=== PATIENT | female | born 1995 | race Caucasian/White ===

== ENCOUNTER 2017-04-09 16:09 | Emergency (ER) | payer SELFPAY ==
[2017-04-09 16:43] VITALS: BP 138/93
== END 2017-04-09 18:05 | disposition left against medical advice (07) ==
LOC: ED 16:09
DX: R11.2 Nausea with vomiting, unspecified (principal); Z53.21 Procedure and treatment not carried out due to patient leaving prior to being seen by health care provider

== ENCOUNTER 2021-11-21 23:12 | Emergency (ER) | payer SELFPAY ==
[2021-11-21 23:23] VITALS: BP 139/81
== END 2021-11-22 01:28 | disposition left against medical advice (07) ==
LOC: ED 23:12
DX: Z00.8 Encounter for other general examination (principal); Z53.21 Procedure and treatment not carried out due to patient leaving prior to being seen by health care provider

== ENCOUNTER 2022-02-24 06:19 | Emergency (ER) | payer SELFPAY ==
[2022-02-24] MEDS ORDERED: ZIPRASIDONE MESYLATE 20 MG VIAL IM PRN (06:52)
--- NOTE | 2022-02-24 07:06 | Emergency Department Report ---
ED Psych HPI - General Chief Complaint: Psych Stated Complaint: MH EVAL Time Seen by Provider: 02/24/22 06:34 Source: patient Mode of arrival: Stretcher Limitations: Other - History of Present Illness Initial Comments: 26-year-old female with a past medical history of bipolar disorder presents to the hospital after her family called due to aggressive and impulsive behaviors since yesterday. Upon arrival here patient is hyperverbal and had to be deesc alated by staff. At time of my evaluation she is calm and cooperative. She states she feels fine and she does not know why she is here. She admits to mental health issues and DENIES suicidal homicidal ideation. - Related Data Home Medications Medication Instructions Recorded Confirmed Last Taken Ibuprofen [Motrin] 800 mg PO Q8HR PRN 04/09/17 04/09/17 04/09/17 09:00 Previous Rx's Medication Instructions Recorded Last Taken Type OLANzapine [ZyPREXA] 10 mg PO QHS 30 Days #30 tablet 02/25/22 Unknown Rx Allergies Allergy/AdvReac Type Severity Reaction Status Date / Time No Known Allergies Allergy Unverified 04/09/17 16:38 ED Review of Systems ROS: Stated complaint: MH EVAL Other details as noted in HPI Comment: All other systems reviewed and negative ED Past Medical Hx - Past Medical History Previous Medical History?: Yes Hx Hypertension: Yes Hx Headaches / Migraines: Yes (MIGRAINES) Hx Psychiatric Treatment: Yes (BIPOLAR) - Surgical History Past Surgical History?: No - Social History Smoking Status: Never Smoker Substance Use Type: None - Medications Home Medications: Home Medications Medication Instructions Recorded Confirmed Last Taken Type Ibuprofen [Motrin] 800 mg PO Q8HR PRN 04/09/17 04/09/17 04/09/17 09:00 History OLANzapine [ZyPREXA] 10 mg PO QHS 30 Days #30 tablet 02/25/22 Unknown Rx ED Physical Exam - General Limitations: No Limitations - Other Other exam information: General: No acute distress Head: Atraumatic Eyes: normal appearance ENT: Moist mucous membranes Neck: Normal appearance, no midline tenderness Chest: Clear to auscultation bilaterally CV: Tachycardic regular rhythm Abdomen: Soft, normal bowel sounds, nontender, nondistended, no rebound or guarding Back: Normal inspection Extremity: Normal inspection, full range of motion Neuro: Alert O x 3, no facial asymmetry, speech clear, no gross motor sensory deficit Psych: Hyperverbal Skin: No rash ED Course Vital Signs 02/24/22 02/24/22 02/24/22 06:24 06:40 06:52 Temperature 98.6 F 98 F Pulse Rate 111 H 108 H Respiratory 18 18 Rate Blood Pressure 138/92 Blood Pressure 136/80 [Right] O2 Sat by Pulse 99 100 100 Oximetry 02/24/22 02/24/22 02/25/22 13:42 20:16 10:17 Temperature 99.4 F Pulse Rate 87 Respiratory 18 Rate Blood Pressure Blood Pressure 152/79 [Right] O2 Sat by Pulse 99 98 97 Oximetry ED Medical Decision Making - Lab Data Result diagrams: 02/24/22 13:01 02/24/22 13:01 Critical care attestation.: If time is entered above; I have spent that time in minutes in the direct care of this critically ill patient, excluding procedure time. ED Disposition Clinical Impression: Schizophrenia Disposition: HOME / SELF CARE / HOMELESS Is pt being admited?: No Condition: Stable Instructions: Schizophrenia Additional Instructions: Professional and Agency Contacts To help Resolve Crises(16/06) [place] Crisis Line: Suicide Prevention Line: Crisis Text Line: Text START to 788629 Emergency: 911 Outpatient COMMUNITY Behavioral Health Resources: [place]: [facility] [address] [place], [place] [address] [facility] [address] [place] [address] [facility] - [address] [place] [address] Friday thru Friday - 8am - 5pm [place]: [facility] Address: [address], [place] [address] [facility] Address: [address] [place] [address] Friday thru Friday- 7am-2pm [facility] Address: [address] [place], [address] Friday thru Friday: 8:30AM-5PM OUTPATIENT MENTAL HEALTH RESOURCES [facility], [address], [place] [address] [facility] Mazin Zavaleta MD: [address] [facility] [address] [place] [address] [facility]: [address] [place] [address] [place] [address] [phone] [facility]: [address] [place], [place] [id number] [phone] [facility]: [address] [facility] [address] [facility] [id number] [facility]: [address] [place] [address] Osvaldo Salmeron MD: [address] [facility] [id number] [facility]: [address] [facility] [place], [place] [id number] [phone] [place] CRISIS AND ACCESS LINE: * Prescriptions: OLANzapine [ZyPREXA] 10 mg PO QHS 30 Days #30 tablet Referrals: ZARINA SABA MD [Primary Care Provider] - 3-5 Days
[2022-02-24] MEDS ORDERED: ZIPRASIDONE MESYLATE 20 MG VIAL IM ONE (09:21)
--- NOTE | 2022-02-24 10:34 | Consultation ---
History of Present Illness - Reason for Consult Consult date: 02/24/22 Reason for consult: Mental health evaluation - History of Present Psychiatric Illness ED Note:26-year-old female with a past medical history of bipolar disorder presents to the hospital after her family called due to aggressive and impulsive behaviors since yesterday. Upon arrival here patient is hyperverbal and had to be deescalated by staff. At time of my evaluation she is calm and cooperative. She states she feels fine and she does not know why she is here. She admits to mental health issues and suicidal homicidal ideation. The patient is a 26 year old female with history of bipolar. In my encounter with the patient, she presents with hyperverbal and pressured speech. The patient is loud with disorganized thinking and flight of ideas asking for security to get her out of here. Unable to assess SI/HI/Avhs. PAST PSYCHIATRIC HISTORY PAST MEDICAL HISTORY: None reported Family Psychiatric History: None reported or documented SOCIAL HISTORY REVIEW OF SYSTEMS MENTAL STATUS EXAMINATION Assessment and Plan (1) Schizophrenia TREATMENT 1013 Start Zyprexa 5mg po BID Continue previously prescribed medications Risks, benefits and alternatives of medications discussed with the patient, questions answered and consent obtained from patient. PSYCHOTHERAPY: Supportive psychotherapy provided MEDICAL: Per primary team DELIRIUM PRECAUTIONS: Please re-orient patient frequently, keep lights on during the day, and minimize benzodiazepines and opiates as these medications could worsen patient's confusion. 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 FOLLOW-UP: Will follow. Thank you for the consult. Please contact with any questions and/or concerns. Medications and Allergies Medications and Allergies Allergies Allergy/AdvReac Type Severity Reaction Status Date / Time No Known Allergies Allergy Unverified 04/09/17 16:38 Home Medications Medication Instructions Recorded Confirmed Last Taken Type Ibuprofen [Motrin] 800 mg PO Q8HR PRN 04/09/17 04/09/17 04/09/17 09:00 History Active Meds: Active Medications Ziprasidone (Ziprasidone Mesylate 20 Mg Vial) 10 mg IM Q2H PRN PRN Reason: Agitation Mental Status Exam - Vital signs Last Vital Signs Temp 98 F 02/24/22 06:40 Pulse 108 H 02/24/22 06:40 Resp 18 02/24/22 06:40 BP 138/92 02/24/22 06:40 Pulse Ox 100 02/24/22 06:40 Results All other labs normal.
[2022-02-24 13:26] LABS: Basophils % (Auto) 0.5 % (0.0-1.8); Eosinophils # (Auto) 0.1 K/mm3 (0.0-0.4); Eosinophils % (Auto) 1.1 % (0.0-4.3); Hematocrit 41.9 % (30.3-42.9); Hemoglobin 13.5 gm/dl (10.1-14.3); Lymphocytes # (Auto) 2.3 K/mm3 (1.2-5.4); Lymphocytes % (Auto) 31.6 % (13.4-35.0); Mean Corpuscular HGB Conc 32 % (30-34); Mean Corpuscular Volume 92 fl (79-97); Monocytes # (Auto) 0.4 K/mm3 (0.0-0.8); Monocytes % (Auto) 6.1 % (0.0-7.3); Platelet Count 290 K/mm3 (140-440); Red Blood Count 4.58 M/mm3 (3.65-5.03); Red Cell Distribution Width 13.7 % (13.2-15.2)
[2022-02-24 13:41] LABS: BUN/Creatinine Ratio 14; Blood Urea Nitrogen 11 mg/dL (7-17); Calcium 10.4 mg/dL (8.4-10.2); Hemolysis Index 2
[2022-02-24 20:22] VITALS: BP 152/79
--- NOTE | 2022-02-25 09:08 | Progress Note ---
Subjective - Reason for Consult Consult date: 02/25/22 Reason for consult: mental health evaluation - Chief Complaint Chief complaint: The patient was seen this morning. She reports doing well; the patient is lucid. She denies any current suicidal/homicidal ideation and denies hallucinations. Constitutional: Negative for weight loss ENT: Negative for stridor Respiratory: Negative for cough or hemoptysis All other systems reviewed and are negative MENTAL STATUS EXAMINATION General Appearance and Behavior: Age appropriate, good hygiene, wearing appropriate clothes, good eye contact, calm, cooperative Cooperation: Participating/engaged, but Guarded Psychomotor Behavior: Psychomotor normal Mood: Good Affect and affective range: congruent with stated mood Thought Process: Logical Thought Content: Reality oriented Speech: normal tone and pace Suicidal Ideation: Denies Homicidal Ideation: Denies Hallucinations: Denies Delusions: None Impulse Control: Limited Insight and Judgment: Limited insight and judgment Memory: Normal Attention: Divided Orientation: Alert, oriented Assessment and Plan (1) Schizophrenia TREATMENT DC 1013 Continue Zyprexa 5mg po BID Continue previously prescribed medications Risks, benefits and alternatives of medications discussed with the patient, questions answered and consent obtained from patient. PSYCHOTHERAPY: Supportive psychotherapy provided MEDICAL: Per primary team DELIRIUM PRECAUTIONS: Please re-orient patient frequently, keep lights on during the day, and minimize benzodiazepines and opiates as these medications could worsen patient's confusion. 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 Supervisor [employer] will provide patient with psychiatric outpatient resources. FOLLOW-UP: Will sign off. Thank you for the consult. Please contact with any questions and/or concerns. Medications and Allergies Mental Status Exam - Vital signs Last Vital Signs Temp 99.4 F 02/24/22 20:16 Pulse 87 02/24/22 20:16 Resp 18 02/24/22 20:16 BP 152/79 02/24/22 20:16 Pulse Ox 98 02/24/22 20:16
--- NOTE | 2022-02-25 11:16 | Emergency Department Report ---
Blank Doc - Documentation Documentation: 26-year-old female with schizophrenia presents with acute psychosis requiring IM location. P.o. medication was initiated during ED stay and psychosis improved. Patient has been recommended for discharge today as per psych.
== END 2022-02-25 11:45 | disposition home or self-care (01) ==
LOC: ED 06:19
DX: F20.9 Schizophrenia, unspecified (principal); I10 Essential (primary) hypertension; G43.909 Migraine, unspecified, not intractable, without status migrainosus; F31.9 Bipolar disorder, unspecified; Z20.822 Contact with and (suspected) exposure to COVID-19
CPT/HCPCS: 36415; 80048; 84443; 84703; 85025; 96372; 99284; J3486; U0003; 80320; G0480

== ENCOUNTER 2022-05-06 12:59 | Emergency (ER) | payer SELFPAY ==
[2022-05-06 13:33] VITALS: BP 143/92
== END 2022-05-07 02:50 | disposition left against medical advice (07) ==
LOC: ED 12:59
DX: M79.676 Pain in unspecified toe(s) (principal); Z53.21 Procedure and treatment not carried out due to patient leaving prior to being seen by health care provider

== ENCOUNTER 2022-05-17 13:38 | Emergency (ER) | payer SELFPAY ==
[2022-05-17 13:57] VITALS: BP 132/90
== END 2022-05-17 14:20 | disposition left against medical advice (07) ==
LOC: ED 13:38
DX: R11.2 Nausea with vomiting, unspecified (principal); Z53.21 Procedure and treatment not carried out due to patient leaving prior to being seen by health care provider

== ENCOUNTER 2022-06-10 02:19 | Emergency (ER) | payer SELFPAY | END 2022-06-10 02:45 | disposition left against medical advice (07) | LOC: ED 02:19 | DX: R10.9 Unspecified abdominal pain (principal); Z53.21 Procedure and treatment not carried out due to patient leaving prior to being seen by health care provider ==